=== PATIENT | male | born 1970 | race Caucasian/White ===

== ENCOUNTER 2017-03-04 11:18 | Outpatient (CLI) | payer OTHER ==
[2017-03-04 13:35] LABS: #Basophils 0.1 thou/uL (0.0-0.2); #Eosinphils 0.4 thou/uL (0.0-0.7); #Monocytes 0.5 thou/uL (0.11-0.59); #Neutrophils 2.6 thou/uL (1.40-6.50); %Basophils 1.5 % (0.0-1.0); %Lymphocytes 35.4 % (21.0-51.0); %Neutrophils 47.1 % (42.0-75.0); Hemoglobin 15.8 g/dL (14.0-18.0); Mean Corpuscular HGB CONC 33.7 g/dL (32.0-36.0); Mean Corpuscular Hemoglobin 30.5 pg (27.0-31.0); Mean Corpuscular Volume 90.6 fl (80.0-94.0); Mean Platelet Volume 7.3 fL (7.4-10.4); Platelet Count 219 thou/uL (130-400); RBC Distribution Width 11.6 % (11.5-14.5); Red Blood Cell (RBC) Count 5.18 mill/uL (4.70-6.10); White Blood Cell (WBC) Count 5.5 thou/uL (4.8-10.8)
[2017-03-04 13:52] LABS: Anion Gap 16 mmol/L (10-20); BUN (Urea Nitrogen) 8 mg/dL (8.9-20.6); Calc. Creatinine Clearance 0 mL/min (70-130); Calcium 9.6 mg/dL (7.8-10.44); Carbon Dioxide 23 mmol/L (22-29); Chloride 106 mmol/L (98-107); Estimated GFR-MDRD 75; Glucose 95 mg/dL (70-105); Potassium 5.1 mmol/L (3.5-5.1); Sodium 140 mmol/L (136-145)
== END 2017-03-04 11:19 | disposition home or self-care (01) ==
LOC: NAVSJIPCSP 11:18
DX: R69 Illness, unspecified (principal)
CPT/HCPCS: 36415; 80048; 85025

== ENCOUNTER 2017-12-23 08:20 | Outpatient (CLI) | payer OTHER ==
--- NOTE | 2017-12-23 09:44 | ULT ---
ULTRASOUND ABDOMEN COMPLETE HISTORY: Abdominal pain, epigastric pain. History of prior abdominal trauma. TECHNIQUE: Rodriugez-scale ultrasound evaluation of the liver, gallbladder, spleen, pancreas, common bile duct, kidne ys, abdominal aorta, and inferior vena cava (IVC). FINDINGS: There is decreased acoustic penetration of the hepatic parenchyma limiting sensitivity. No discrete h epatic lesion is identified. No acute gallbladder pathology. Spleen and kidneys are unremarkable. Por tion of the pancreas is obscured from bowel content limiting assessment. Common duct is normal in maynor meter for the patient's age at 5 mm. Elias's sign reported as negative. No ascites visualized. IMPRESSION: 1. Decreased acoustic penetration of the hepatic parenchyma. There is a slight degree of increased ec hogenicity which may relate to hepatic steatosis. Correlate with liver function enzymes. 2. Otherwise, no discrete evidence for acute intraabdominal pathology identified by sonographic evalu ation. POS: [facility]
== END 2017-12-23 08:21 | disposition home or self-care (01) ==
LOC: NAV ULT 08:20
PROVIDERS: ATTEND Family Medicine
DX: R10.13 Epigastric pain (principal); R93.3 Abnormal findings on diagnostic imaging of other parts of digestive tract
CPT/HCPCS: 76700

== ENCOUNTER 2019-10-31 13:19 | Emergency (ER) | payer BC, OTHER ==
--- NOTE | 2019-10-31 14:04 | RAD ---
Right index finger 3 views HISTORY: Injury. FINDINGS: Joint space narrowing, osteophytosis, and subchondral sclerosis most pronounced at the dist al interphalangeal joint. No acute fracture, dislocation, or metallic foreign bodies. Soft tissue irregularity over the dorsal aspect of the finger likely related to recent injury. IMPRESSION : Osteoarthritis distal interphalangeal joint. No acute osseous abnormalities are demonstrated.
[2019-10-31] MEDS ORDERED: Sulfameth/Trimethoprim DS 800-160mg TAB ONE (14:08)
== END 2019-10-31 14:15 | disposition home or self-care (01) ==
LOC: NAV ERS 13:19
DX: M79.644 Pain in right finger(s) (principal); L98.499 Non-pressure chronic ulcer of skin of other sites with unspecified severity